=== PATIENT | male | born 1940 | race Caucasian/White ===

== ENCOUNTER 2017-07-29 18:33 | Inpatient (IN) | payer MEDICARE ==
[~2017-07-29 18:33] MED LIST: ISOVUE-370 76%-LOCM 1 ML ONE
[2017-07-29] MEDS ORDERED: Nitroglycerin 0.4 MG TAB (25 Tab Bottle) ONE (19:16)
[2017-07-29] MEDS ORDERED: Mag-Al 1200 mg/1200 mg/30 ML UDCUP ONE (19:16)
[2017-07-29] MEDS ORDERED: Metoprolol Tartrate 5 MG/5 ML VIAL ONE (19:16)
[2017-07-29] MEDS ORDERED: Lidocaine Viscous Sol 2% 15 ml UD Cup ONE (19:16)
[2017-07-29 19:31] LABS: #Eosinphils 0.1 thou/uL (0.0-0.7); #Lymphocytes 1.3 thou/uL (1.20-3.40); #Monocytes 0.7 thou/uL (0.11-0.59); #Neutrophils 10.2 thou/uL (1.40-6.50); %Basophils 0.4 % (0.0-1.0); %Eosinophils 0.5 % (0.0-10.0); %Lymphocytes 10.8 % (21.0-51.0); %Monocytes 5.4 % (0.0-10.0); Hematocrit 45.5 % (42.0-52.0); Red Blood Cell (RBC) Count 5.12 mill/uL (4.70-6.10); White Blood Cell (WBC) Count 12.4 thou/uL (4.8-10.8)
[2017-07-29 19:56] LABS: ALT (SGPT) 12 U/L (8-55); AST (SGOT) 13 U/L (5-34); Alkaline Phosphatase 59 U/L (40-150); Anion Gap 13 mmol/L (10-20); BUN (Urea Nitrogen) 18 mg/dL (8.4-25.7); Bilirubin, Total 0.7 mg/dL (0.2-1.2); CK (CPK) 68 U/L (30-200); Calc. Creatinine Clearance 0 mL/min (70-130); Calcium 9.4 mg/dL (7.8-10.44); Carbon Dioxide 26 mmol/L (23-31); Chloride 99 mmol/L (98-107); Estimated GFR-MDRD 71; Globulin 3.2 g/dL (2.4-3.5); Lipase 9 U/L (8-78); Protein, Total 7.3 g/dL (5.8-8.1)
[2017-07-29 20:00] LABS: Troponin I Less than 0.010 ng/mL (< 0.028)
--- NOTE | 2017-07-29 20:15 | RAD ---
PORTABLE CHEST: 07/29/17 HISTORY: Chest pain. COMPARISON: 04/30/17 study. Heart size is borderline. Postop sternotomy change and internal defibrillator device are noted. Management Services Technician elma lung changes are seen. No acute process. IMPRESSION: Chronic lung change. No acute findings. POS: [facility]
[2017-07-29] MEDS ORDERED: Morphine 2 MG/ML SYRINGE ONE (20:17)
[2017-07-30] MEDS ORDERED: Ondansetron HCl/PF 4 MG/2 ML Vial IVP PRN (04:06)
[2017-07-30] MEDS ORDERED: Morphine 2 MG/ML SYRINGE SLOW IVP PRN (04:56)
[2017-07-30] MEDS: Morphine 2 MG/ML SYRINGE SLOW IVP PRN ×5 (05:09→21:09)
[2017-07-30] MEDS: Sodium Chloride 0.9% 1,000 ML IV SCH ×2 (05:10→12:54)
[2017-07-30] MEDS ORDERED: Meropenem 1 GM, Admixture Fee 1 EACH in Sodium Chloride 0.9% 100 ML IVPB SCH (06:00)
[2017-07-30 07:42] VITALS: BMI 23.7
--- NOTE | 2017-07-30 08:24 | CT ---
PRELIMINARY REPORT/[facility]/EMERGENCY AFTER HOURS PROCEDURE: EXAM: CT Abdomen and Pelvis With Intravenous Contrast CLINICAL HISTORY: 76 years old, male; Pain; Abdominal pain; Epigastric; Patient HX: 76 yo male with epigastric pain th at has been ongoing all day today. Pain radiates to his back and into his chest. Denies nvd. Had saad nt placed in march. Pmhx of 7 cardiac bypass. Recently at his cardiology a couple of days ago and was told he was fine. Also notes epigstric abd pain. Iv contrast only TECHNIQUE: Axial computed tomography images of the abdomen and pelvis with intravenous contrast. Coronal reformatted images were created and reviewed. CONTRAST: 100 mL of ISO 14 administered intravenously. COMPARISON: No relevant prior studies available. FINDINGS: The lung bases are clear. The gallbladder is distended, transverse diameter up to 4.5 cm. Moderate gallbladder wall thickening/edema. Moderate pericholecystic inflammatory changes, small amount of pericholecystic fluid. No definite/visible gallstones by CT. Ultrasound could be more sensitive for detecting gallstones, i f clinically needed. Overall findings are very suspicious for acute cholecystitis. Mild extra hepatic biliary tree prominence, with common duct measuring about 6-7 mm. No definite int rahepatic dilation. No visible common duct stone by CT. Significance uncertain. Correlation with laboratory/bilirubin levels may be helpful to determine if there is any significant biliary obstruction. Complete occlusion of the abdominal aorta, beginning at about the level of the renal arteries. No de finite evidence for significant focal abdominal aortic aneurysm. The lower abdominal aorta is very small in caliber. Occlusion of the proximal common iliac arteries bilaterally. Reconstitution of the distal common iliac arteries bilaterally, via collateral flow. Celiac artery, superior mesenteric artery, and left renal arteries appear patent. The right renal artery appears occluded. I presume that the above findings are chronic, please correlate clinically. Small atrophic right kidney, presumably due to chronic vascular insufficiency. Numerous bilateral renal cysts, more prominent and larger on the right. Largest cyst measures 8 cm i nvolving the right upper pole. No hydronephrosis of either kidney. No visible ureteral calculus. There is a small low attenuation area in the right lobe of the liver. The appearance is nonspecific, but statistically this most likely represents a small cyst or hemangi bala. Unremarkable appearance of the spleen, kidneys, adrenal glands, and pancreas. No free air, or bowel distention. Small amount of peritoneal fluid/ascites, mainly in the right pericolic gutter. No retroperitoneal adenopathy. CT pelvis: The appendix is visualized and appears normal. There are no CT findings to strongly suggest diverticulitis. No abnormal mass or fluid collection in the pelvis. Small bilateral inguinal hernias, right larger than left, containing only fat. IMPRESSION: Findings compatible with acute cholecystitis, see above details. Mild extra hepatic biliary tree prominence, see above discussion. No free air or bowel distention. Occlusion of the lower abdominal aorta, common iliac arteries, and right renal artery, presumably ch ronic findings. Clinical correlation needed. See above details/discussion. Small atrophic right kidney, see above discussion. Bilateral renal cysts. No hydronephrosis of either kidney. No visible ureteral calculus. Normal appendix. No diverticulitis. Small amount of peritoneal fluid/ascites. Other findings discussed above. Thank you for allowing us to participate in the care of your patient. Dictated and Authenticated by: Amanuel Panchal MD 07/30/2017 12:50 AM Central Time ([place] \T\ Lisa) FINAL REPORT CT ABDOMEN AND PELVIS WITH CONTRAST: HISTORY: Pain. Epigastric pain going on all day. Pain radiating to the back and chest. COMPARISON: 03/20/17. FINDINGS: Atelectatic changes in the lung bases. Heart size is prominent. Abnormal wall thickening and enhan cement around the gallbladder with small bowel fluid in the right pericolonic gutter. There are num erous bilateral renal cysts with the majority of the right renal parenchyma replaced by cyst formati on. There is a chronic occlusion of the aorta at the level of the right renal artery with the left renal artery being spared. The inferior mesenteric artery collaterals and superior mesenteric arter y feed the iliac vessels. Moderate degenerative disease at L5-S1. IMPRESSION: 1. CT evidence of acute cholecystitis. Other chronic findings as above. 2. Curvilinear radiopacity within the cecum is felt to be ingested as new from a comparison examina tion. Recommend correlation for ingestion of metallic foreign body. CODE: QA POS: [facility]
[2017-07-30] MEDS ORDERED: Albuterol Sulfate 1.25 MG/3 ML NEB NEB PRN (09:09)
[2017-07-30] MEDS ORDERED: Nitroglycerin 0.4 MG TAB (25 Tab Bottle) SL PRN (09:09)
[2017-07-30] MEDS: Carvedilol 6.25 MG TAB PO SCH ×2 (09:59→21:37)
[2017-07-30 10:05] LABS: PTT 34.7 SEC (22.9-36.1); Prothrombin Time 15.5 SEC (12.0-14.7)
[2017-07-30 10:20] LABS: ALT (SGPT) 10 U/L (8-55); AST (SGOT) 10 U/L (5-34); Alkaline Phosphatase 50 U/L (40-150); Anion Gap 10 mmol/L (10-20); BUN (Urea Nitrogen) 15 mg/dL (8.4-25.7); Bilirubin, Total 1.1 mg/dL (0.2-1.2); Calc. Creatinine Clearance 70 mL/min (70-130); Calcium 8.9 mg/dL (7.8-10.44); Carbon Dioxide 28 mmol/L (23-31); Chloride 99 mmol/L (98-107); Estimated GFR-MDRD 72; Globulin 2.8 g/dL (2.4-3.5); Protein, Total 6.6 g/dL (5.8-8.1)
[2017-07-30 10:24] LABS: Troponin I 0.014 ng/mL (< 0.028)
[2017-07-30 10:39] LABS: Band 8 % (5-11); Hematocrit 46.5 % (42.0-52.0); Mean Platelet Volume 7.7 fL (7.4-10.4); Neutrophil 79 % (42-75); Reactive Lymphocytes 2 % (0-10); Red Blood Cell (RBC) Count 5.25 mill/uL (4.70-6.10)
--- NOTE | 2017-07-30 11:04 | ULT ---
ULTRASOUND GALLBLADDER RIGHT UPPER QUADRANT: HISTORY: Abnormal CT examination. FINDINGS: Visualized portions of the pancreas are unremarkable. The gallbladder is distended with positive Mu rphy's sign, pericholecystic fluid, and wall edema. Multiple cysts in the right kidney which is atr ophic. Hepatic echotexture is normal. IMPRESSION: 1. Findings indicative of acute cholecystitis. 2. Atrophic polycystic right kidney. POS: [facility]
[2017-07-30] MEDS: D5 1/2 NS w/20 mEq KCL 1,000 ML IV SCH ×3 (12:01→22:48)
[2017-07-30] MEDS: SODIUM CHLORIDE 0.9% IVPB SCH ×2 (14:50→22:46)
[2017-07-30] MEDS: MEROPENEM IVPB SCH ×2 (14:50→22:46)
[2017-07-30] MEDS: ADMIXTURE FEE CHEMO IVPB SCH ×2 (14:50→22:46)
--- NOTE | 2017-07-30 15:16 | HP ---
CHIEF COMPLAINT: Abdominal pain. HISTORY OF PRESENT ILLNESS: Mr. Gillette is a 76-year-old man with multiple medical issues who presented to the emergency room with epigastric pain that began yesterday morning and lasted all day long. He states that it was radiating to his back and his chest. He denied nausea, vomiting or diarrhea. He denied fevers or chills. He does have a history of an SC about [address] Baires took him to the seed laboratory technician, but was unable to stent anything, so he has just been managed medically since that time. In the emergency room, he underwent a CT scan of the abdomen and pelvis which revealed stranding around his gallbladder concerning for cholecystitis as well as some mild extrahepatic biliary dilatation. A followup ultrasound did not reveal any definite stones in the gallbladder and the visualized common bile duct on ultrasound was normal in caliber. He denies any previous history of gallbladder problems and denies a history of postprandial pain. He does have severe vascular disease with chronic aortic occlusion as well as renal artery occlusion and atrophic kidney. He does have chronic pain in his legs, but no skin breakdown or rest pain. It sounds like it is more claudication type pain. He is feeling better today than he was yesterday after receiving pain medications and antibiotics in the emergency room, but he is still hurting and states that the pain is worse in the right upper quadrant. PAST MEDICAL HISTORY: 1. Coronary artery disease status post SC x3 with 2 bypass surgeries and an attempted stenting 3 months ago which was unable to be performed. 2. Hyperlipidemia. 3. Hypertension. 4. COPD. 5. Chronic peripheral vascular disease with aortic and renal artery occlusion. 6. Prostatic hypertrophy. PAST SURGICAL HISTORY: Coronary artery bypass x2, inguinal hernia repair and AICD placement. The AICD has never fired . SOCIAL HISTORY: He is a former smoker who quit about 20 years ago. He does not have any alcohol or drug use. ALLERGIES: He has allergies or adverse drug reactions to ROFECOXIB/VIOXX. OUTPATIENT MEDICATIONS: Include Brilinta 90 mg p.o. b.i.d., aspirin 81 mg p.o. daily, finasteride 5 mg p.o. daily, CoQ10 200 mg p.o. b.i.d., lisinopril 20 mg p.o. b.i.d., folate 0.4 mg p.o. daily, tamsulosin 0.4 mg p.o. b.i.d., carvedilol 12.5 mg p.o. b.i.d., Crestor 10 mg p.o. daily, iron 325 mg p.o. daily , metoprolol extended release 25 mg p.o. daily, pantoprazole 40 mg p.o. daily, isosorbide mononitrate 60 mg p.o. daily and p.r.n. sublingual nitroglycerin and Ranexa 500 mg p.o. b.i.d., albuterol nebs p.r.n., Symbicort inhaler b.i.d., and tramadol p.r.n. for the pain in his legs. INPATIENT MEDICATIONS: He received meropenem in the emergency room as well as pain medication. FAMILY HISTORY: Noncontributory. REVIEW OF SYSTEMS: Ten system review of systems is negative except per HPI. PHYSICAL EXAMINATION: VITAL SIGNS: Patient has been afebrile since his admission, his heart rate is up slightly in the low 100s, respiratory rate 16-20 and 93%-95% saturated on room air. Blood pressure normal in the 130s to 140s systolic over 70s-80s diastolic. GENERAL: Reveals an elderly gentleman in no acute distress. He is not flushed or toxic in appearance. He is not jaundiced or icteric. HEENT: Unremarkable. NECK: Supple, without lymphadenopathy or thyroid nodules. HEART: Regular in its rate and rhythm. I do not appreciate any murmurs, rubs, or gallops. LUNGS: Clear to auscultation. ABDOMEN: Soft and nondistended. He is very tender to palpation in the right upper quadrant, less so in the right lower quadrant and left upper quadrant. He does not exhibit any rigidity, rebound or guarding and does not have any palpable masses or hernias. EXTREMITIES: Cool, but with fairly normal capillary refill. No palpable pulses , no edema, no skin breakdown or ulcerations. He does not have pallor on elevation. He has normal strength and sensation. PSYCHIATRIC: Alert, oriented, and appropriate. LABORATORY DATA: White count was mildly elevated at 12.4 and has actually gone up this morning to 25. He does have a left shift. Coags are unremarkable. LFTs and electrolytes are unremarkable. Troponins in the ER were negative and repeat troponins remain negative. His BNP is elevated at 11:35. EKG in the ER did not show any acute ST changes, but did show a first degree AV block. CT images are reviewed and I agree with the written report. He has multiple chronic abnormalities including renal cysts, aortic occlusion with distal reconstitution through collaterals, right renal artery occlusion with resulting atrophy. The only acute appearing finding is the abnormal gallbladder which is distended with pericholecystic fluid and inflammation and gallbladder wall thickening. Gallbladder ultrasound does not have radiologist's report, but on my evaluation, the wall is thickened with some pericholecystic fluid. I do not appreciate any gallstones and the common bile duct is normal caliber. ASSESSMENT: Acute cholecystitis, likely acalculous. Patient has multiple comorbidities including severe coronary artery disease and peripheral vascular disease and I am concerned that he is high risk for general anesthesia. I have asked Cardiology to evaluate him, but will likely proceed with percutaneous drainage of the gallbladder and antibiotic therapy. The relative risks and benefits of laparoscopic cholecystectomy versus percutaneous drainage were discussed with the patient and his daughter. The percutaneous cholecystectomy does carry risks of bleeding, need for further procedures, and possible recurrence after the drain is removed; however, I believe that he has likely elevated cardiac risk for general anesthesia given his recent SC and non- revisable cardiac disease. I have spoken with Dr. Marmolejo about him and he is going to see him today. We will await his evaluation. GARY
[2017-07-30] MEDS: Ondansetron HCl/PF 4 MG/2 ML Vial IVP PRN ×2 (16:27→21:05)
[2017-07-30] MEDS ORDERED: Furosemide 40 MG/4 ML VIAL SLOW IVP SCH (18:45)
--- NOTE | 2017-07-30 18:55 | CON ---
DATE OF CONSULTATION: 07/30/2017 REASON FOR CONSULTATION: Preoperative evaluation. PRIMARY FORESTRY SCIENTIST: Albaro Agudelo M.D. HISTORY OF PRESENT ILLNESS: Mr. Cory Gillette is a very pleasant 76-year-old white gentleman who com es to the hospital for abdominal pain. He was diagnosed with acute cholecystitis with elevated whit e count and the plan is to do either a cholecystectomy or percutaneous tube for drainage. Cardiolog y is being consulted to ask for preoperative risk evaluation. Mr. Gillette denies any chest pain, t ightness, or pressure. Denies any shortness of breath. He is not having any heart failure symptoms . He does have a significant history of coronary artery disease with bypass grafting in the past. The last time he was evaluated was back in December in the setting of an inferior NM. He had a heart c atheterization and this was done by Dr. Baires. He was not able to engage the vein graft that had thr ombosed. He was treated medically and has been treated medically since. PAST MEDICAL HISTORY: 1. Coronary artery disease as above. 2. Hyperlipidemia. 3. Hypertension. 4. COPD. 5. History of ischemic cardiomyopathy with an EF of 35%. PAST SURGICAL HISTORY: 1. CABG in the past. 2. Hernia repair. 3. AICD placement. SOCIAL HISTORY: Quit smoking in 1997. No alcohol or drug use. OUTPATIENT MEDICATIONS: Include: 1. Aspirin. 2. Folic acid. 3. Finasteride. 4. Carvedilol 12.5 mg b.i.d. 5. Imdur 30 mg a day. 6. Iron supplements. 7. Toprol-XL 25 mg a day. 8. Lisinopril 20 mg b.i.d. 9. Protonix. 10. Tamsulosin. 11. Crestor 10 mg at bedtime. 12. Co-Q10. 13. Brilinta 90 mg b.i.d. 14. Ranexa 500 mg b.i.d. ALLERGIES: VIOXX. FAMILY HISTORY: Noncontributory. REVIEW OF SYSTEMS: Twelve-point review of systems was done and is all negative unless stated in the history of present illness. PHYSICAL EXAMINATION: VITAL SIGNS: T-max has been 99.3, pulse 105, respiration rate 18, satting 92% on 2 liters, blood pr essure 141/78. GENERAL: Awake, alert, oriented x3, in no distress. HEENT: Normocephalic, atraumatic. NECK: Supple. LUNGS: Clear. CARDIOVASCULAR: S1, S2, no S3 or S4. There is a grade 2/6 systolic murmur in right upper sternal b order. ABDOMEN: Soft with tenderness in the right upper quadrant, positive Marsh sign. EXTREMITIES: No edema. SKIN: Warm and dry. LABORATORY WORK: Reviewed. White count of 12 up to 25, hemoglobin of 15, hematocrit 46, platelet c ount 198. Coags, INR 1.2. Chemistry was unremarkable except for a sodium of 133 and a glucose of 1 36. Troponin has been negative x3. BNP was 1135 and his baseline BNP is actually in the 200s. CT of the abdomen and pelvis shows acute cholecystitis. ASSESSMENT AND PLAN: 1. Preoperative evaluation: Mr. Gillette would be high risk for this intermediate risk procedure. High risk is based on his unrevascularizeable coronary artery disease and his reduced left ventricu lar function. At this point in time, he is certainly not in prohibitive risk and should be able to undergo said procedure. Either percutaneous drain versus cholecystectomy. It should be okay to do either open versus laparoscopic. Would hold the Brilinta for now until it is safe from the surgical perspective to restart. 2. Coronary artery disease, stable. No evidence of acute coronary syndrome. 3. Ischemic cardiomyopathy: Ejection fraction of 35% on last evaluation. Automated implantable ca rdioverter defibrillator in place. Thank you for letting us to participate in the care of your patient. We will continue to follow.
[2017-07-30] MEDS: Mometasone/Formoterol 120 PUFF INHALER INH SCH (19:05)
[2017-07-30] MEDS: Lisinopril 20 MG TAB PO SCH (21:36)
[2017-07-30] MEDS: Finasteride 5 MG TAB PO SCH (21:37)
[2017-07-30] MEDS: Tamsulosin HCl 0.4 MG CAP PO SCH (21:37)
[2017-07-30] MEDS: traMADol HCl 50 MG TAB PO SCH (21:38)
[2017-07-31] MEDS: Morphine 2 MG/ML SYRINGE SLOW IVP PRN ×3 (01:57→10:27)
[2017-07-31] MEDS: SODIUM CHLORIDE 0.9% IVPB SCH ×3 (05:01→22:01)
[2017-07-31] MEDS: MEROPENEM IVPB SCH ×3 (05:01→22:01)
[2017-07-31] MEDS: ADMIXTURE FEE CHEMO IVPB SCH ×3 (05:01→22:01)
[2017-07-31] MEDS: Ondansetron HCl/PF 4 MG/2 ML Vial IVP PRN (05:06)
[2017-07-31] MEDS: Mometasone/Formoterol 120 PUFF INHALER INH SCH ×2 (07:02→18:48)
[2017-07-31] MEDS: traMADol HCl 50 MG TAB PO SCH ×2 (08:46→19:53)
[2017-07-31] MEDS: Lisinopril 20 MG TAB PO SCH (08:48)
[2017-07-31] MEDS: Carvedilol 6.25 MG TAB PO SCH ×2 (08:51→21:58)
[2017-07-31] MEDS: Tamsulosin HCl 0.4 MG CAP PO SCH ×2 (08:51→19:54)
[2017-07-31 09:06] LABS: Hematocrit 46.1 % (42.0-52.0); Red Blood Cell (RBC) Count 5.16 mill/uL (4.70-6.10)
[2017-07-31 09:14] LABS: ALT (SGPT) 8 U/L (8-55); AST (SGOT) 12 U/L (5-34); Alkaline Phosphatase 47 U/L (40-150); Anion Gap 9 mmol/L (10-20); BUN (Urea Nitrogen) 20 mg/dL (8.4-25.7); Calc. Creatinine Clearance 72 mL/min (70-130); Calcium 8.6 mg/dL (7.8-10.44); Carbon Dioxide 26 mmol/L (23-31); Chloride 99 mmol/L (98-107); Estimated GFR-MDRD 75; Lipase 4 U/L (8-78); Protein, Total 6.2 g/dL (5.8-8.1)
[2017-07-31 09:56] LABS: Band 8 % (5-11); Neutrophil 83 % (42-75); Reactive Lymphocytes 1 % (0-10)
[2017-07-31] MEDS: D5 1/2 NS w/20 mEq KCL 1,000 ML IV SCH ×2 (10:26→10:32)
[2017-07-31] MEDS ORDERED: Sodium Chloride 0.9% 500 ML IVPB SCH (12:15)
--- NOTE | 2017-07-31 17:12 | PDOC.CTH ---
Cardiology Progress Note - Subjective He continues to have abdominal pain. No chest pain. - Objective Vital Signs Temp Pulse Resp BP BP Pulse Ox 07/31/17 16:00 97.9 F 81 16 88/54 L 94 L 07/31/17 15:22 90/51 L 07/31/17 14:42 94/50 L 07/31/17 13:40 93/54 L 07/31/17 13:30 87/47 L 07/31/17 12:40 97/59 L 07/31/17 11:52 97.5 F L 84 16 92/51 L 92 L 07/31/17 11:35 85 90/47 L 07/31/17 08:51 114/70 07/31/17 08:48 114/70 07/31/17 08:40 98.1 F 88 16 93 L 07/31/17 08:00 98.1 F 88 16 103/67 93 L 07/30/17 07/31/17 08/01/17 06:59 06:59 06:59 Intake Total 300 2950 Output Total 1460 Balance 300 1490 - Physical Examination General/Neuro: alert & oriented x3, NAD Neck: no JVD present Lungs: CTA, unlabored respirations Heart: RRR Abdomen: other: (tender to palpatoin RUQ) Extremities: + edema B (none) - Labs Result Diagrams: 07/31/17 08:40 07/31/17 08:40 Troponin/CKMB CK-MB (CK-2) 0.8 ng/mL (0-6.6) 07/30/17 09:51 Troponin I 0.014 ng/mL (< 0.028) 07/30/17 09:51 - Assessment/Plan 1. Acute cholecystitis 2. CAD, stable 3. Ischemic CM EF at 35%. 4. AICD in place PLAN: - No new recs from cardiac perspective.
[2017-07-31] MEDS: Finasteride 5 MG TAB PO SCH (19:54)
--- NOTE | 2017-07-31 23:32 | PRG ---
DATE OF SERVICE: 07/31/2017 SUBJECTIVE: Mr. Gillette states that he is feeling better today. His abdominal pain has diminished quite a bit. He has had some episodes of low blood pressure throughout the day. He has told us th at he was taking lisinopril twice a day, but other family members arrive today who informed us that he had been told by his strings teacher to stop taking his lisinopril except on a p.r.n. basis when his blood pressure was very high. His blood pressure did respond to fluids and he was only intermitten tly and mildly symptomatic with little lightheadedness. He has not had any fevers and his vital sig ns have otherwise been okay. His white count is still elevated, but is down somewhat compared to ye and he is less tender to palpation in the right upper quadrant than yesterday as well. ASSESSMENT: Acalculous cholecystitis responding to medical management. I have ordered repeat ultra sound for tomorrow as well as repeat labs to make sure that his gallbladder is not looking worse.
[2017-08-01] MEDS: D5 1/2 NS w/20 mEq KCL 1,000 ML IV SCH ×3 (02:20→21:30)
[2017-08-01] MEDS: Morphine 2 MG/ML SYRINGE SLOW IVP PRN ×3 (02:31→15:54)
[2017-08-01] MEDS: ADMIXTURE FEE CHEMO IVPB SCH ×3 (05:04→17:53)
[2017-08-01] MEDS: SODIUM CHLORIDE 0.9% IVPB SCH ×3 (05:04→17:53)
[2017-08-01] MEDS: MEROPENEM IVPB SCH ×3 (05:04→17:53)
[2017-08-01 06:21] LABS: Band 8 % (5-11); Hematocrit 40.4 % (42.0-52.0); Mean Platelet Volume 8.1 fL (7.4-10.4); Neutrophil 83 % (42-75); Red Blood Cell (RBC) Count 4.49 mill/uL (4.70-6.10); White Blood Cell (WBC) Count 16.4 thou/uL (4.8-10.8)
[2017-08-01 06:30] LABS: ALT (SGPT) 10 U/L (8-55); AST (SGOT) 14 U/L (5-34); Alkaline Phosphatase 48 U/L (40-150); Anion Gap 7 mmol/L (10-20); BUN (Urea Nitrogen) 26 mg/dL (8.4-25.7); Bilirubin, Total 0.9 mg/dL (0.2-1.2); Calc. Creatinine Clearance 80 mL/min (70-130); Calcium 8.2 mg/dL (7.8-10.44); Carbon Dioxide 25 mmol/L (23-31); Chloride 102 mmol/L (98-107); Estimated GFR-MDRD 84; Globulin 2.6 g/dL (2.4-3.5); Protein, Total 5.6 g/dL (5.8-8.1)
[2017-08-01] MEDS: Mometasone/Formoterol 120 PUFF INHALER INH SCH ×2 (07:51→23:08)
[2017-08-01] MEDS: Carvedilol 6.25 MG TAB PO SCH ×2 (08:34→20:35)
[2017-08-01] MEDS: Tamsulosin HCl 0.4 MG CAP PO SCH ×2 (08:35→21:29)
[2017-08-01] MEDS: traMADol HCl 50 MG TAB PO SCH ×2 (08:35→21:28)
--- NOTE | 2017-08-01 09:53 | ULT ---
RIGHT UPPER QUADRANT ULTRASOUND: Date: 08/01/17 HISTORY: Cholecystitis. FINDINGS: The liver demonstrates homogeneous echotexture without focal mass or intrahepatic ductal dilatation. There is sludge and mobile shadowing gallstones in the gallbladder with gallbladder wall thickening measuring 4.8 mm. Multiple cysts in the right kidney are seen, the largest measuring about 6.0 mm. These have been noted on the CT scan of 07/30/17. The common duct measures 8.0 mm in diameter. The p ancreas is not satisfactorily visualized. No free fluid is seen in Morison's pouch. Incidental note is made of a right-sided pleural effusion. IMPRESSION: 1. Cholelithiasis with gallbladder wall thickening and gallbladder sludge. If there is high clinica l suspicion for acute cholecystitis, further evaluation with a HIDA scan would be helpful. 2. Right renal cyst. 3. Right pleural effusion. POS: [facility]
--- NOTE | 2017-08-01 18:00 | NM ---
HEPATOBILIARY SCAN: Date: 08/01/17 HISTORY: Cholelithiasis, cholecystitis. RADIOPHARMACEUTICAL: 5 mCi technetium-99m mebrofenin injected intravenously. Pretreatment with CCK: 1.6 micrograms administered 30 minutes prior to the radiopharmaceutical. FINDINGS: There is good tracer extraction by the liver with prompt excretion into the biliary tract and small bowel loops. There is no filling of the gallbladder at 1 hour. 2 mg IV morphine administered and add itional imaging performed for 30 minutes. No filling of the gallbladder is noted on the post morphin e augmentation images. IMPRESSION: Acute cholecystitis. Discussed over the telephone with Dr. Patric Valencia at 1647 hours. CODE CR. POS: [facility]
[2017-08-01] MEDS: Finasteride 5 MG TAB PO SCH (21:29)
--- NOTE | 2017-08-01 21:49 | PRG ---
DATE OF SERVICE: 08/01/2017 SUBJECTIVE: Mr. Gillette is feeling better today. He is not having as much pain as he has had in the past. He denies any fevers. He is not nauseated, but has not had anything to eat today since he was n.p.o. for a repeat gallbladder ultrasound. The ultrasound showed sludge in the gallbladder and wall thickening, although the pericholecystic fluid, which was present earlier was not noted. His white count is still elevated, but is down slightly to 16. LFTs remain normal. On abdominal exam, he is threading machine tender in the right upper quadrant, but not as much as he was before. After discussing his case with Dr. Agudelo of Cardiology, he confirmed that the patient is high risk for any surgical procedure due to severe vascular disease and cardiomyopathy. Since the patient seems to be improving with medical management, we are going to continue this, with a gallbladder drain if necessary. I explained that the radiologist had been hesitant to do a percutaneous cholecystostomy tube due to the antiplatelet treatment. He states that the patient will need to go back on aspirin, but we can hold the Brilinta. I then discussed the patient's case with Radiology and they recommended a HIDA scan to see if the patient definitely has cholecystitis with the thought that if the gallbladder fills normally, we could restart his antiplatelets without too much concern. But if the gallbladder did not fill normally, we might be able to do the percutaneous cholecystostomy before resuming his antiplatelet treatment. A HIDA scan was ordered and this showed no filling of the gallbladder consistent with acute cholecystitis. Radiology is planning tentatively to perform the percutaneous cholecystostomy placement tomorrow. After this is done, we will resume his aspirin. If they are unable to do it tomorrow, we will resume his aspirin anyway. The treatment plan was discussed with the patient and he is in agreement with this plan. GARY
[2017-08-02] MEDS: SODIUM CHLORIDE 0.9% IVPB SCH ×3 (00:30→21:54)
[2017-08-02] MEDS: ADMIXTURE FEE CHEMO IVPB SCH ×3 (00:30→21:54)
[2017-08-02] MEDS: MEROPENEM IVPB SCH ×3 (00:30→21:54)
[2017-08-02] MEDS: Morphine 2 MG/ML SYRINGE SLOW IVP PRN ×5 (01:07→19:38)
[2017-08-02 06:59] LABS: ALT (SGPT) 20 U/L (8-55); AST (SGOT) 24 U/L (5-34); Alkaline Phosphatase 52 U/L (40-150); Anion Gap 9 mmol/L (10-20); BUN (Urea Nitrogen) 25 mg/dL (8.4-25.7); Bilirubin, Total 0.8 mg/dL (0.2-1.2); Calc. Creatinine Clearance 91 mL/min (70-130); Calcium 8.1 mg/dL (7.8-10.44); Carbon Dioxide 24 mmol/L (23-31); Chloride 102 mmol/L (98-107); Estimated GFR-MDRD Greater than 90; Globulin 2.8 g/dL (2.4-3.5); Mean Platelet Volume 8.4 fL (7.4-10.4); Protein, Total 5.7 g/dL (5.8-8.1); Red Blood Cell (RBC) Count 4.16 mill/uL (4.70-6.10); White Blood Cell (WBC) Count 15.8 thou/uL (4.8-10.8)
[2017-08-02] MEDS: Mometasone/Formoterol 120 PUFF INHALER INH SCH ×2 (07:09→20:27)
[2017-08-02 08:11] LABS: Band 13 % (5-11); Neutrophil 74 % (42-75); Reactive Lymphocytes 1 % (0-10)
[2017-08-02] MEDS: Carvedilol 6.25 MG TAB PO SCH ×2 (08:53→21:08)
[2017-08-02] MEDS: Tamsulosin HCl 0.4 MG CAP PO SCH ×2 (09:24→21:50)
[2017-08-02] MEDS: traMADol HCl 50 MG TAB PO SCH ×2 (09:25→21:49)
[2017-08-02] MEDS ORDERED: Midazolam HCl 2 mg/2 ml Vial ONE (09:59)
[2017-08-02] MEDS ORDERED: Fentanyl 100 MCG/2 ML VIAL ONE (09:59)
--- NOTE | 2017-08-02 13:19 | SPC ---
SONOGRAPHICALLY GUIDED PERCUTANEOUS CHOLECYSTOSTOMY: Conscious sedation: 2 mg Versed, IV. 100 microgram Fentanyl, IV. Fluoro time: 2.8 minutes. FINDINGS: After explaining the procedure and answering all questions, the right upper quadrant was prepped and draped in the usual sterile fashion. Sterile technique, conscious sedation, buffered local anesthes ia, sonographic guidance, and a right upper quadrant anterior approach were used to carefully advanc e the tip of a 22 gauge spinal needle to the gallbladder lumen with good purchase through the hepati c parenchyma. A small amount of contrast was used to confirm needle placement. Guidewire was placed. Accu-stick system was then used to place a sheath, and approximately 60 cc of cloudy black bile was aspirated. A portion was sent to laboratory for analysis. Tract was dilated to 8 [place] Of [place] and an 8 Fr ench lock-n-loop catheter was placed at the level of the gallbladder neck. The catheter was secured externally with 20 ethilon suture and left draining to gravity. Patient tolerated the procedure well and was returned in improved condition. IMPRESSION: Technically successful sonographic guided percutaneous cholecystostomy. POS: [facility]
[2017-08-02 13:30] LABS: BF Reference Range Comment Note:
--- NOTE | 2017-08-02 14:04 | CT ---
CT ABDOMEN AND PELVIS NONCONTRAST: History: Abdominal pain. Acute cholecystitis. Comparison: 07-30-17 FINDINGS: Small amount of bilateral pleural fluid and bibasilar atelectasis are now apparent. Renal cysts are again demonstrated. Urinary bladder contains a small amount of contrast. Pigtail catheter now decompresses the gallbladder lumen. Stones and a small amount of contrast mater ial remain. Inflammation surrounding the gallbladder has increases slightly since the prior study. IMPRESSION: 1. Percutaneous cholecystectomy catheter is in good CT position, decompressing the gallbladder. No e vidence of hematoma. 2. Small amount of bilateral pleural fluid and bibasilar atelectasis. Findings were called to Dr. Valencia at 1309 hours. Code CR. POS: [facility]
[2017-08-02] MEDS: D5 1/2 NS w/20 mEq KCL 1,000 ML IV SCH (14:19)
[2017-08-02 14:56] LABS: BF Color Brown; RBC Count-Automated 34000 /cumm
[2017-08-02 15:32] LABS: Number Cells Counted-Fluids 100
--- NOTE | 2017-08-02 17:18 | PRG ---
DATE OF SERVICE: 08/02/2017 SUBJECTIVE: Mr. Gillette went for his percutaneous cholecystostomy tube placement earlier today. A s the gallbladder was being aspirated, he started complaining of severe pain in the abdomen and some pain in his shoulder. He was given pain medication and anxiolytic down in x-ray, but when he came up to the floor, he was still having severe pain. I gave him several doses of morphine without effe ct and decided to scan him without contrast due to concern for complications from the procedure. Ho wever, the tube appears to be in perfect position. There is no evidence of bleeding or large biloma and the patient's pain resolved almost as quickly as it came on. His abdomen is soft and nondisten ded. He is refining still operator to palpation in the right upper quadrant, but this is about the same as yes terday. The cholecystostomy tube is draining clear-appearing bile. Gram stain and cultures were se nt from Radiology; results are not back. ASSESSMENT: Cholecystitis, status post percutaneous drainage, symptomatically better. I am unsure what the cause of his acute pain was. He may have had a small amount of bile drainage and irritatio n or it may be due to just decompression of the gallbladder and moving the inflamed tissues in that area. In any case, his symptoms have resolved, so we will just follow him for this. I have reorder ed his aspirin to start and also ordered repeat labs for tomorrow. We will follow his culture resul ts and plan to discharge him with a cholecystostomy tube in place.
[2017-08-02] MEDS: Finasteride 5 MG TAB PO SCH (21:50)
[2017-08-03] MEDS: D5 1/2 NS w/20 mEq KCL 1,000 ML IV SCH ×3 (04:39→20:25)
[2017-08-03] MEDS: SODIUM CHLORIDE 0.9% IVPB SCH ×3 (06:10→21:14)
[2017-08-03] MEDS: MEROPENEM IVPB SCH ×3 (06:10→21:14)
[2017-08-03] MEDS: ADMIXTURE FEE CHEMO IVPB SCH ×3 (06:10→21:14)
[2017-08-03] MEDS: Mometasone/Formoterol 120 PUFF INHALER INH SCH ×2 (06:35→19:47)
[2017-08-03 06:38] LABS: #Eosinphils 0.2 thou/uL (0.0-0.7); #Lymphocytes 1.1 thou/uL (1.20-3.40); #Monocytes 1.2 thou/uL (0.11-0.59); #Neutrophils 9.3 thou/uL (1.40-6.50); %Basophils 0.1 % (0.0-1.0); %Eosinophils 1.3 % (0.0-10.0); %Lymphocytes 9.5 % (21.0-51.0); %Monocytes 10.4 % (0.0-10.0); Hematocrit 36.9 % (42.0-52.0); Mean Platelet Volume 8.2 fL (7.4-10.4); Red Blood Cell (RBC) Count 4.23 mill/uL (4.70-6.10); White Blood Cell (WBC) Count 11.8 thou/uL (4.8-10.8)
[2017-08-03 06:59] LABS: ALT (SGPT) 30 U/L (8-55); AST (SGOT) 35 U/L (5-34); Alkaline Phosphatase 65 U/L (40-150); Anion Gap 9 mmol/L (10-20); BUN (Urea Nitrogen) 20 mg/dL (8.4-25.7); Bilirubin, Total 0.7 mg/dL (0.2-1.2); Calc. Creatinine Clearance 100 mL/min (70-130); Calcium 8.4 mg/dL (7.8-10.44); Carbon Dioxide 25 mmol/L (23-31); Chloride 104 mmol/L (98-107); Estimated GFR-MDRD Greater than 90; Globulin 2.6 g/dL (2.4-3.5); Protein, Total 5.4 g/dL (5.8-8.1)
[2017-08-03] MEDS: Carvedilol 6.25 MG TAB PO SCH ×2 (09:08→20:24)
[2017-08-03] MEDS: Aspirin 81 mg Enteric Coated Tablet PO SCH (09:09)
[2017-08-03] MEDS: traMADol HCl 50 MG TAB PO SCH ×2 (09:10→21:59)
[2017-08-03] MEDS: Tamsulosin HCl 0.4 MG CAP PO SCH ×2 (09:10→20:23)
--- NOTE | 2017-08-03 12:26 | PRG ---
DATE OF SERVICE: 08/03/2017 SUBJECTIVE: Mr. Gillette is feeling much better today. His abdominal pain is less than it was yest erday and he is tolerating his clear liquid diet. Morning labs are still pending. His abdomen is s oft, mildly tender to palpation in the right upper quadrant, but less than yesterday. There is bili ous drainage from his cholecystostomy tube. ASSESSMENT AND PLAN: Acute cholecystitis, status post percutaneous drainage. He is doing well and tolerating his liquid diet. We are going to advance his diet today to a low fat/low cholesterol t. The nurses are going to teach him how to manage his cholecystostomy drain and I anticipate he wi ll be discharged home with this likely tomorrow, although possibly later today if he is doing well.
[2017-08-03] MEDS: Morphine 2 MG/ML SYRINGE SLOW IVP PRN (20:21)
[2017-08-03] MEDS: Finasteride 5 MG TAB PO SCH (20:24)
[2017-08-04] MEDS: Morphine 2 MG/ML SYRINGE SLOW IVP PRN (04:28)
[2017-08-04] MEDS: SODIUM CHLORIDE 0.9% IVPB SCH (06:11)
[2017-08-04] MEDS: ADMIXTURE FEE CHEMO IVPB SCH (06:11)
[2017-08-04] MEDS: MEROPENEM IVPB SCH (06:11)
[2017-08-04] MEDS: Mometasone/Formoterol 120 PUFF INHALER INH SCH (07:11)
[2017-08-04] MEDS: Aspirin 81 mg Enteric Coated Tablet PO SCH (08:33)
[2017-08-04] MEDS: Tamsulosin HCl 0.4 MG CAP PO SCH (08:35)
[2017-08-04] MEDS: traMADol HCl 50 MG TAB PO SCH (08:35)
[2017-08-04] MEDS: Carvedilol 6.25 MG TAB PO SCH (08:36)
[2017-08-04] MEDS ORDERED: Lisinopril 10 MG TAB PO SCH (09:00)
[2017-08-04] MEDS ORDERED: HYDROcodone/Acetaminophen 7.5/325 mg Tablet PO PRN ×2 (10:52)
[2017-08-04 17:11] VITALS: BP 147/88; TEMP 98.3
--- NOTE | 2017-08-05 14:05 | DIS ---
DATE OF ADMISSION: 07/30/2017 DATE OF DISCHARGE: 08/04/2017 FINAL DIAGNOSES: 1. Acute cholecystitis. 2. Severe coronary artery disease, nonreconstructable. 3. Severe peripheral vascular disease with chronic aortic occlusion. 4. Chronic renal insufficiency with renal artery occlusion. 5. Heart failure. HOSPITAL COURSE: Mr. Gillette is an elderly gentleman with multiple medical problems who presented to the emergency room with acute onset of severe epigastric pain and was found to have findings cons istent with acute cholecystitis on ultrasound, but normal LFTs. He was admitted for IV pain medicat ion, antibiotics and cardiac evaluation. The patient was felt to be very high risk for surgical int ervention for his cholecystitis. Initially, the plan was to place percutaneous cholecystostomy tube drain; however, Radiology had concerns that this might not be safe due to his antiplatelet therapy. So he was maintained on antibiotics and pain medication for 5 days until the percutaneous cholecys tostomy tube could be drained. His white count came down and his pain improved. His family was ins tructed on drain care and management and he was discharged home with the percutaneous cholecystostom y tube in place. Bile cultures grew E. coli which was pansensitive. OUTPATIENT MEDICATIONS: Include new medication of [place] 7.5 for p.r.n. pain and Levaquin 500 mg p.o . daily. He is to continue on his outpatient medications of albuterol nebulizers, p.r.n. nitroglyce rin, Dulera inhaler, tramadol, aspirin, finasteride, carvedilol, tamsulosin, CoQ12, Protonix, iron, folate, Crestor, Imdur, metoprolol, and p.r.n. lisinopril. He is going to hold his Brilinta for now . He is to [facility] 2 weeks' time with a drain log for possible fer ange of cholecystostomy tube. He is to continue on a low fat diet.
== END 2017-08-04 17:47 | disposition home or self-care (01) | DRG 445 ==
LOC: ERS 18:33 → SURG B 07-30 01:00
PROVIDERS: ADMIT Surgery; ATTEND Surgery
PROC: 0F9430Z Drainage of Gallbladder with Drainage Device, Percutaneous Approach (ICD-10-PCS; principal; 2017-08-02)
DX: K81.0 Acute cholecystitis (principal); N28.0 Ischemia and infarction of kidney; J44.9 Chronic obstructive pulmonary disease, unspecified; I10 Essential (primary) hypertension; I25.2 Old myocardial infarction; I25.10 Atherosclerotic heart disease of native coronary artery without angina pectoris; E78.5 Hyperlipidemia, unspecified; I73.89 Other specified peripheral vascular diseases; N40.0 Benign prostatic hyperplasia without lower urinary tract symptoms; Z95.1 Presence of aortocoronary bypass graft; Z95.810 Presence of automatic (implantable) cardiac defibrillator; Z87.891 Personal history of nicotine dependence; Z88.8 Allergy status to other drugs, medicaments and biological substances; Z79.82 Long term (current) use of aspirin; Z79.51 Long term (current) use of inhaled steroids; I44.0 Atrioventricular block, first degree; B96.20 Unspecified Escherichia coli [E. coli] as the cause of diseases classified elsewhere; I25.5 Ischemic cardiomyopathy
CPT/HCPCS: 36415; 47490; 47532; 47533; 47534; 71010; 74176; 74177; 76705; 78226; 80053; 82553; 83690; 83880; 84484; 85025; 85060; 85610; 85730; 87070; 87077; 87186; 87205; 89051; 93005; 96361; 96365; 96375; 99152; 99153; A4216; A9537; C1729; J1940; J2185; J2250; J2270; J2405; J3010; J7050

== ENCOUNTER 2018-08-03 11:45 | Outpatient (CLI) | payer MEDICARE ==
--- NOTE | 2018-08-03 15:25 | RAD ---
2 VIEWS CHEST: Date: 08/03/18 COMPARISON: 12/24/14. HISTORY: Dyspnea. FINDINGS: There is a stable transvenous AICD. Stable midline sternotomy wires and mediastinal clips are present . There is no pneumothorax or pleural fluid. There is no focal consolidation or alveolar edema. There is increased linear interstitial density with pulmonary hyperinflation suggesting COPD, stable as we ll. IMPRESSION: Stable 2 view examination of the chest as above. POS: JUAN CARLOS
== END 2018-08-03 11:46 | disposition home or self-care (01) ==
LOC: RAD 11:45
PROVIDERS: ATTEND Internal Medicine Pulmonary Disease
DX: R06.00 Dyspnea, unspecified (principal)
CPT/HCPCS: 71046

== ENCOUNTER 2018-12-18 17:55 | Observation (INO) | payer MEDICARE ==
[2018-12-18 18:27] LABS: #Lymphocytes 0.7 thou/uL (1.20-3.40); #Monocytes 0.8 thou/uL (0.11-0.59); %Basophils 0.4 % (0.0-1.0); %Eosinophils 0.1 % (0.0-10.0); %Lymphocytes 9.1 % (21.0-51.0); %Monocytes 10.2 % (0.0-10.0); %Neutrophils 80.2 % (42.0-75.0); Hemoglobin 14.8 g/dL (14.0-18.0); Mean Corpuscular HGB CONC 33.2 g/dL (32.0-36.0); Mean Corpuscular Hemoglobin 28.6 pg (27.0-31.0); Mean Corpuscular Volume 86.1 fL (78.0-98.0); Platelet Count 152 thou/uL (130-400); RBC Distribution Width 13.7 % (11.5-14.5); Red Blood Cell (RBC) Count 5.16 mill/uL (4.70-6.10); White Blood Cell (WBC) Count 7.5 thou/uL (4.8-10.8)
[2018-12-18] MEDS ORDERED: Ondansetron PF 4 MG/2 ML Vial ONE (18:28)
[2018-12-18 18:35] LABS: ALT (SGPT) 10 U/L (8-55); AST (SGOT) 12 U/L (5-34); Albumin 4.1 g/dL (3.4-4.8); Alkaline Phosphatase 55 U/L (40-150); Anion Gap 16 mmol/L (10-20); BUN (Urea Nitrogen) 24 mg/dL (8.4-25.7); Bilirubin, Total 0.9 mg/dL (0.2-1.2); Calc. Creatinine Clearance 0 mL/min (70-130); Calcium 9.5 mg/dL (7.8-10.44); Carbon Dioxide 24 mmol/L (23-31); Chloride 99 mmol/L (98-107); Estimated GFR-MDRD 74; Glucose 111 mg/dL (83-110); Lipase 11 U/L (8-78); Potassium 3.8 mmol/L (3.5-5.1); Protein, Total 7.1 g/dL (5.8-8.1); Sodium 135 mmol/L (136-145)
[2018-12-18 19:08] LABS: Bilirubin Small (Negative); Blood, Urine Negative (Negative); Glucose, Urine (Dipstick) Negative (Negative); Leukocyte Negative (Negative); Nitrite Negative (Negative); Protein, Urine (Dipstick) 100 mg/dL (Neg-Trace); Specific Gravity, Urine 1.025 (1.005-1.030); pH, Urine 5.5 (5.0-9.0)
[2018-12-18 19:09] LABS: Clarity Hazy (Clear)
[2018-12-18 19:16] LABS: RBC/HPF None Seen HPF (0-3); Squamous Epithelial None Seen HPF (0-3); WBC/HPF None Seen HPF (0-3)
[2018-12-18 19:17] LABS: Bacteria/HPF 1+ HPF (None Seen)
[2018-12-18] MEDS ORDERED: Sodium Chloride 0.9% 0 ML ONE (20:22)
[2018-12-18] MEDS ORDERED: Metoclopramide HCl 10 MG/2 ML VIAL ONE (20:22)
[2018-12-18] MEDS ORDERED: diphenhydrAMINE 50 MG/ML VIAL ONE (20:23)
--- NOTE | 2018-12-18 20:58 | RAD ---
KUB AND UPRIGHT AND PA CHEST: History: Abdominal pain, nausea and vomiting. FINDINGS: There is air within both small and large bowel with what appear to be some slightly dilated fluid linh led small bowel loops raising the possibility of partial small bowel obstruction. No free air. Arthri tic changes of the spine are noted. Surgical clips are seen adjacent to the left ischial tuberosity. PA chest: Heart size is borderline. Post op sternotomy change and internal defibrillator. Lungs are c lear of any infiltrative process. IMPRESSION: Suggestion of some slightly distended fluid filled proximal small bowel loops raising the possibility of either ileus or partial small bowel obstruction. If clinically indicated, further evaluation with CT would be recommended for assessment. POS: JUAN CARLOS
[2018-12-18] MEDS ORDERED: Pantoprazole 40 MG VIAL ONE (23:31)
[2018-12-18] MEDS ORDERED: Morphine 4 MG/ML VIAL ONE (23:41)
--- NOTE | 2018-12-18 23:50 | CT ---
CT ABDOMEN AND PELVIS WITH IV CONTRAST: Date: 12-18-18 History: Nausea and vomiting. Comparison: 07-30-17 FINDINGS: There is partial visualization of a left ventricular AICD lead. Median sternotomy wires are partially imaged. Small hiatal hernia is present. The lung bases are clear with question of minimal pleural thickening posteriorly at each lung base. Again noted is atrophic right kidney with severe renal cortical thinning. Multiple bilateral renal cy sts are again seen, more numerous on the right which are stable compared to the prior exam. The liver, pancreas, and bilateral adrenal glands demonstrate a normal CT appearance. Calcified granulomata are seen in the spleen. There are dilated loops of proximal small bowel with loops of bowel measuring up to 3.5 cm. There is no abrupt transition point present, but there is tapering to more normal caliber small bowel within t he ileum. There are subcentimeter too small to characterize hyperdense lesion again seen within the right hepat ic lobe. Gallbladder is not well visualized and may be complete contracted or possibly surgically absent. Again noted is occlusion of the abdominal aorta which begins at the level of the left renal artery. T he right renal artery is very small and atretic in appearance. This is a stable finding. There is partial visualization of fat containing inguinal canals. The lower most portion of the pelvi s is incompletely imaged. No other interval change from prior exam. IMPRESSION: 1. Dilated small bowel loops without abrupt transition zone. Findings may be related to low grade sma ll bowel obstruction or ileus. 2. Small hiatal hernia. 3. Right renal atrophy and cortical thinning. 4. Bilateral renal cysts. 5. Occlusion of the abdominal aorta beginning at the level of the renal arteries. 6. Subcentimeter too small to characterize hypodense lesion right kidney. 7. The gallbladder is not imaged. There is linear density in the region of the gallbladder fossa. Thi s may be related to completely contracted gallbladder, orpossibly related to prior surgery. Clinical correlation recommended. POS: JUAN CARLOS
[2018-12-19] MEDS ORDERED: Ondansetron ODT 4 MG TAB SL PRN (01:28)
[2018-12-19] MEDS ORDERED: Ondansetron PF 4 MG/2 ML Vial IVP PRN (01:28)
[2018-12-19 01:33] VITALS: BMI 26.4
[2018-12-19] MEDS: Sodium Chloride 0.9% 1,000 ML IV SCH ×2 (05:57→08:00)
--- NOTE | 2018-12-19 09:45 | RAD ---
RADIOGRAPH ABDOMEN ONE VIEW: Date: 12-19-18 History: 78-year-old male with right flank pain for three weeks. FINDINGS: There is enteric contrast material throughout the colon from CT of 12-18-18, which partially obscures portions of the bilateral renal shadows and distal ureters. There is IV contrast material within a no ndistended urinary bladder. There is a paucity of gas in the small intestine. The fact that the enter ic contrast material has reached the rectum indicates that there is no high grade small bowel obstruc tion. IMPRESSION: No high grade small bowel obstruction. POS: JUAN CARLOS
--- NOTE | 2018-12-19 10:30 | HP ---
CHIEF COMPLAINT: Lower abdominal pain. HISTORY OF PRESENT ILLNESS: The patient is an 78-year-old male, who reports he has multiple medical problems. He has a 1-week history of feeling weak and a 2 to 3-week history of lower abdominal pain. His bowels have been working. His last bowel movement was 2 days ago. He is currently passing flatus. He developed nausea and vomiting yesterday and came to the emergency room. He feels much better now. He is hungry. No fever. PAST MEDICAL HISTORY: Coronary artery disease. He has had a myocardial infarction, hyperlipidemia, hypertension, COPD, peripheral vascular disease, and benign prostatic hypertrophy. He sees Dr. Agudelo. PAST SURGERIES: He has had 2 coronary artery bypass grafts. He has had bilateral inguinal hernia repair. He has had an implantable defibrillator and he had a cholecystostomy tube for acute cholecystitis in 2017 because he was too sick to go the OR. SOCIAL HISTORY: He is a former smoker. No current tobacco or alcohol. MEDICATIONS: Include; 1. Brilinta. 2. CoQ10. 3. Rosuvastatin. 4. Nitrostat. 5. Dulera. 6. Iron. 7. Aspirin. 8. Albuterol. 9. Imdur ER. 10. Loman. 11. Folic acid. 12. Protonix. 13. Toprol-XL. 14. Finasteride. 15. Coreg. 16. Flomax. 17. Crestor. PHYSICAL EXAMINATION: VITAL SIGNS: Temperature 98.3, pulse 88, and blood pressure 115/74. GENERAL: He is awake and alert, in no distress. HEENT: Unremarkable. LUNGS: Clear. HEART: Regular rate and rhythm. ABDOMEN: Soft, nondistended, and nontender. Good bowel sounds. EXTREMITIES: Unremarkable. LABORATORY DATA: White count 7.5, H and H of 14 and 44, and platelet count 152. Electrolytes are fine. Urinalysis fine. He had a CT scan of the abdomen, which showed a contracted gallbladder. It showed some dilated loops of proximal small bowel, but no transition point and occlusion of the aorta at the renal arteries. ASSESSMENT: Ileus versus partial obstruction, resolved. PLAN: We will repeat his KUB. If it looks like the contrast from the CT has gone through, we will advance diet and discharge. Job ID: [id number]
[2018-12-19] MEDS ORDERED: Nitroglycerin 0.4 MG TAB (25 Tab Bottle) SL PRN (13:23)
[2018-12-19] MEDS ORDERED: Albuterol Sulfate 1.25 MG/3 ML NEB NEB PRN (13:25)
[2018-12-19] MEDS: HYDROcodone/Acetaminophen 7.5/325 mg Tablet PO PRN ×2 (13:40→23:31)
[2018-12-19] MEDS: Mometasone/Formoterol 120 PUFF INHALER INH SCH (19:06)
[2018-12-19] MEDS: Ubidecarenone 50 MG CAP PO SCH (20:33)
[2018-12-19] MEDS: Tamsulosin HCl 0.4 MG CAP PO SCH (20:34)
[2018-12-19] MEDS: Carvedilol 25 MG TAB PO SCH (20:34)
[2018-12-19] MEDS ORDERED: Rosuvastatin 10 MG TAB PO SCH (21:00)
[2018-12-19] MEDS ORDERED: Finasteride 5 MG TAB PO SCH (21:00)
[2018-12-20 07:48] VITALS: BP 123/72; TEMP 97.2
[2018-12-20] MEDS: Mometasone/Formoterol 120 PUFF INHALER INH SCH (08:45)
[2018-12-20] MEDS ORDERED: Aspirin 81 mg Enteric Coated Tablet PO SCH (09:00)
[2018-12-20] MEDS ORDERED: Folic Acid 1 MG TAB PO SCH (09:00)
[2018-12-20] MEDS ORDERED: Ferrous Sulfate 325 MG TAB PO SCH (09:00)
[2018-12-20] MEDS ORDERED: TICAGRELOR 60 MG PO SCH (09:00)
[2018-12-20] MEDS: Tamsulosin HCl 0.4 MG CAP PO SCH (09:06)
[2018-12-20] MEDS: Ubidecarenone 50 MG CAP PO SCH (09:06)
[2018-12-20] MEDS: Carvedilol 25 MG TAB PO SCH (09:07)
--- NOTE | 2018-12-20 12:42 | DIS ---
DATE OF ADMISSION: 12/19/2018 DATE OF DISCHARGE: 12/20/2018 DISCHARGE DIAGNOSIS: Partial small bowel obstruction. PROCEDURES DURING ADMISSION: Bowel rest and IV fluids. HOSPITAL COURSE: The patient was admitted and placed at bowel rest. He got better. Followup KUB showed contrast had moved through. He felt fine. His diet advanced. He is tolerating a regular diet. He is discharged home on his usual medications. He will follow up with me in 2 weeks. Job ID: [id number]
== END 2018-12-20 10:00 | disposition home or self-care (01) ==
LOC: SCSER 17:55 → SURG A 12-19 00:48
PROVIDERS: ADMIT Surgery; ATTEND Surgery
DX: K56.600 Partial intestinal obstruction, unspecified as to cause (principal); I25.10 Atherosclerotic heart disease of native coronary artery without angina pectoris; I25.2 Old myocardial infarction; E78.5 Hyperlipidemia, unspecified; I10 Essential (primary) hypertension; N40.0 Benign prostatic hyperplasia without lower urinary tract symptoms; I73.9 Peripheral vascular disease, unspecified; K44.9 Diaphragmatic hernia without obstruction or gangrene; Z87.891 Personal history of nicotine dependence; Z79.02 Long term (current) use of antithrombotics/antiplatelets; Z79.82 Long term (current) use of aspirin; Z79.899 Other long term (current) drug therapy; Z88.8 Allergy status to other drugs, medicaments and biological substances; Z95.1 Presence of aortocoronary bypass graft; Z95.810 Presence of automatic (implantable) cardiac defibrillator
CPT/HCPCS: 74018; 74022; 74177; 80053; 83605; 83690; 84484; 85025; 93005; 94640 ×2; 96361 ×2; 96365; 96375; 99285; G0378 ×2; 81003; 81015; C9113; J1200; J2270; J2405; J2765; J7050

== ENCOUNTER 2024-03-29 18:45 | Inpatient (IN) | payer MEDICARE ==
[2024-03-29 19:09] LABS: #Basophils Less than 0.03 10x3/uL (0.0-0.2); %Basophils 0.3 % (0.0-1.0); %Eosinophils 5.2 % (0.0-10.0); %Lymphocytes 15.2 % (21.0-51.0); %Monocytes 10.6 % (0.0-10.0); %Neutrophils 68.3 % (42.0-75.0); Hemoglobin 10.1 g/dL (14.0-18.0); Mean Corpuscular HGB CONC 33.7 g/dL (32.0-36.0); Mean Corpuscular Hemoglobin 26.1 pg (27.0-31.0); Mean Corpuscular Volume 77.5 fL (78.0-98.0); Mean Platelet Volume 9.9 fL (7.4-10.4); Platelet Count 166 10x3/uL (130-400); RBC Distribution Width 21.2 % (11.5-14.5); Red Blood Cell (RBC) Count 3.87 mill/uL (4.70-6.10)
[2024-03-29 19:30] LABS: ALT (SGPT) Less than 5 U/L (8-55); AST (SGOT) 13 U/L (5-34); Albumin 3.3 g/dL (3.4-4.8); Alkaline Phosphatase 48 U/L (40-110); Anion Gap 13 mmol/L (10-20); BUN (Urea Nitrogen) 50 mg/dL (8.4-25.7); Bilirubin, Total 0.6 mg/dL (0.2-1.2); Calc. Creatinine Clearance 0 mL/min (70-130); Carbon Dioxide 26 mmol/L (23-31); Chloride 99 mmol/L (98-107); Estimated GFR 51; Globulin 2.8 g/dL (2.4-3.5); Glucose 129 mg/dL (83-110); Potassium 3.6 mmol/L (3.5-5.1); Protein, Total 6.1 g/dL (5.8-8.1); Sodium 134 mmol/L (136-145)
[2024-03-29 19:33] LABS: Troponin I 0.012 ng/mL (< 0.028)
[2024-03-29 19:51] LABS: Bacteria/HPF None Seen HPF (None Seen); Bilirubin Negative (Negative); Blood, Urine Negative (Negative); CAUTI Indications for Culture Pelvic or flank pain; Clarity Clear (Clear); Glucose, Urine (Dipstick) Normal (Negative); Ketone, Urine Negative (Negative); Leukocyte Negative Leu/uL (Negative); Nitrite Negative (Negative); Protein, Urine (Dipstick) Negative (Neg-Trace); RBC/HPF None Seen HPF (0-3); Specific Gravity, Urine 1.015 (1.002-1.036); Squamous Epithelial 0-3 HPF (0-3); WBC/HPF 0-3 HPF (0-3); pH, Urine 6.5 (5.0-9.0)
[2024-03-29 19:54] LABS: Urine Culture Reflex No No
[2024-03-29] MEDS ORDERED: CALCIUM GLUC 1 GM/NS 50 ML IV Bag ONE (22:42)
[2024-03-29] MEDS ORDERED: Ipratropium/Albuterol 3 ML NEB ONE (23:37)
[2024-03-29] MEDS ORDERED: Ondansetron PF 4 MG/2 ML Vial IVP PRN (23:37)
[2024-03-30 00:06] LABS: Magnesium 1.7 mg/dL (1.6-2.6)
[2024-03-30 00:39] LABS: Actual Bicarbonate (HCO3v) 23.5 mEq/L (22-28); Base Excess -1.7 mEq/L (-2.0 to +3.0); Calcium, Ionized (venous) 1.16 mmol/L (1.16-1.32); Chloride (VBG) 99 mmol/L (98-106); Hematocrit-VBG 33 % (42.0-52.0); Hemoglobin (Hb) 11.2 g/dL (12.6-17.4); Potassium (VBG) 4.03 mmol/L (3.70-5.30); Sodium 136 mmol/L (133-146); pH (venous) 7.369 (7.32-7.43)
[2024-03-30 01:52] VITALS: BMI 23.1
[2024-03-30] MEDS: Ipratropium/Albuterol 3 ML NEB IPPB SCH (02:11)
[2024-03-30 04:04] LABS: Amphetamine Not Detected (NotDetected); Barbiturates Screen Not Detected (NotDetected); Benzodiazepine Screen Not Detected (NotDetected); Cocaine Metabolite Screen Not Detected (NotDetected); Methadone Not Detected (NotDetected); Methamphetamine Not Detected (NotDetected); Opiate Screen Not Detected (NotDetected); Oxycodone Screen Not Detected (NotDetected); Phencyclidine (PCP) Not Detected (NotDetected); THC/Cannabinoid Screen Not Detected (NotDetected); Tricyclic Screen Detected (NotDetected)
[2024-03-30] MEDS: Magnesium 2 GM/50 ML(in water) 2 GM in Premix 1 BAG IVPB SCH (04:38)
[2024-03-30 06:10] LABS: #Basophils 0.03 10x3/uL (0.0-0.2); %Basophils 0.4 % (0.0-1.0); %Eosinophils 5.7 % (0.0-10.0); %Lymphocytes 17.3 % (21.0-51.0); %Monocytes 12.5 % (0.0-10.0); %Neutrophils 63.7 % (42.0-75.0); Hematocrit 31.6 % (42.0-52.0); Hemoglobin 10.3 g/dL (14.0-18.0); Mean Corpuscular HGB CONC 32.6 g/dL (32.0-36.0); Mean Corpuscular Hemoglobin 25.2 pg (27.0-31.0); Mean Corpuscular Volume 77.5 fL (78.0-98.0); Mean Platelet Volume 10.7 fL (7.4-10.4); Platelet Count 172 10x3/uL (130-400); RBC Distribution Width 21.2 % (11.5-14.5); Red Blood Cell (RBC) Count 4.08 mill/uL (4.70-6.10)
[2024-03-30 06:27] LABS: Anion Gap 12 mmol/L (10-20); BUN (Urea Nitrogen) 41 mg/dL (8.4-25.7); Calc. Creatinine Clearance 52 mL/min (70-130); Calcium 9.2 mg/dL (7.8-10.44); Carbon Dioxide 24 mmol/L (23-31); Chloride 102 mmol/L (98-107); Estimated GFR 63; Glucose 101 mg/dL (83-110); Iron 49 ug/dL (65-175); Iron Binding Capacity, Total 314 mcg/dL (261-462); Potassium 3.6 mmol/L (3.5-5.1); Sodium 134 mmol/L (136-145)
[2024-03-30] MEDS: Mometasone 200 MCG/Formoterol 5 MCG 120 PUFF INHALER INH SCH (06:30)
[2024-03-30] MEDS: Ranolazine ER 500 MG TAB PO SCH (09:35)
[2024-03-30] MEDS: Carbidopa/Levodopa 25-100 mg Tablet PO SCH (09:35)
[2024-03-30] MEDS: Icosapent Ethyl 1 GM CAPSULE PO SCH (09:35)
[2024-03-30] MEDS: Apixaban 5 MG TAB PO SCH (09:35)
[2024-03-30] MEDS: Clopidogrel Bisulfate 75 MG TAB PO SCH (09:35)
[2024-03-30] MEDS: Pantoprazole DR 40 MG TAB PO SCH (09:35)
[2024-03-30] MEDS: Folic Acid 1 MG TAB PO SCH (09:35)
[2024-03-30] MEDS: Diclofenac 1% 50 GM TOPICAL GEL TP PRN (12:08)
[2024-03-30] MEDS: Rosuvastatin 10 MG TAB PO SCH (22:03)
[2024-03-31 04:00] LABS: #Basophils 0.03 10x3/uL (0.0-0.2); %Basophils 0.4 % (0.0-1.0); %Lymphocytes 17.2 % (21.0-51.0); %Monocytes 10.6 % (0.0-10.0); %Neutrophils 66.4 % (42.0-75.0); Hematocrit 33.9 % (42.0-52.0); Hemoglobin 11.2 g/dL (14.0-18.0); Mean Corpuscular Hemoglobin 26.1 pg (27.0-31.0); Mean Platelet Volume 10.5 fL (7.4-10.4); Platelet Count 176 10x3/uL (130-400); RBC Distribution Width 21.7 % (11.5-14.5); Red Blood Cell (RBC) Count 4.29 mill/uL (4.70-6.10)
[2024-03-31 04:18] LABS: Anion Gap 13 mmol/L (10-20); BUN (Urea Nitrogen) 27 mg/dL (8.4-25.7); Calc. Creatinine Clearance 65 mL/min (70-130); Calcium 9.4 mg/dL (7.8-10.44); Carbon Dioxide 23 mmol/L (23-31); Chloride 101 mmol/L (98-107); Estimated GFR 83; Glucose 96 mg/dL (83-110); Potassium 4.2 mmol/L (3.5-5.1); Sodium 133 mmol/L (136-145)
[2024-03-31] MEDS: Ziprasidone 20 MG VIAL ONE (22:27)
[2024-03-31] MEDS: Sterile Water 10 ML ONE (22:28)
[2024-03-31] MEDS: Ziprasidone 20 MG VIAL IM SCH (22:29)
[2024-03-31] MEDS ORDERED: Sterile Water 10 ML VIAL FS PRN (22:30)
[2024-04-01 04:34] LABS: #Basophils Less than 0.03 10x3/uL (0.0-0.2); %Basophils 0.2 % (0.0-1.0); %Lymphocytes 16.4 % (21.0-51.0); %Neutrophils 70.8 % (42.0-75.0); Hematocrit 36.4 % (42.0-52.0); Hemoglobin 12.2 g/dL (14.0-18.0); Mean Corpuscular HGB CONC 33.5 g/dL (32.0-36.0); Mean Corpuscular Volume 77.4 fL (78.0-98.0); Platelet Count 174 10x3/uL (130-400); RBC Distribution Width 21.5 % (11.5-14.5)
[2024-04-01 04:49] LABS: Anion Gap 17 mmol/L (10-20); BUN (Urea Nitrogen) 22 mg/dL (8.4-25.7); Calc. Creatinine Clearance 70 mL/min (70-130); Calcium 9.4 mg/dL (7.8-10.44); Carbon Dioxide 24 mmol/L (23-31); Chloride 98 mmol/L (98-107); Estimated GFR 85; Glucose 92 mg/dL (83-110); Potassium 3.7 mmol/L (3.5-5.1); Sodium 135 mmol/L (136-145)
[2024-04-01] MEDS: Acetaminophen 325 MG TAB PO PRN (07:53)
[2024-04-01] MEDS: risperiDONE 0.25 MG TAB PO SCH (17:56)
[2024-04-01] MEDS: Melatonin 3 MG TAB PO PRN (21:59)
[2024-04-02] MEDS ORDERED: Magnesium Sulfate 20 GM/WATER 500 ML BAG IVPB SCH (00:45)
[2024-04-02 00:52] LABS: #Basophils Less than 0.03 10x3/uL (0.0-0.2); %Basophils 0.1 % (0.0-1.0); %Eosinophils 2.9 % (0.0-10.0); %Lymphocytes 17.7 % (21.0-51.0); %Monocytes 10.7 % (0.0-10.0); %Neutrophils 68.1 % (42.0-75.0); Hematocrit 35.9 % (42.0-52.0); Hemoglobin 12.2 g/dL (14.0-18.0); Mean Corpuscular Hemoglobin 26.6 pg (27.0-31.0); Mean Corpuscular Volume 78.2 fL (78.0-98.0); Mean Platelet Volume 9.4 fL (7.4-10.4); Platelet Count 168 10x3/uL (130-400); RBC Distribution Width 21.2 % (11.5-14.5); Red Blood Cell (RBC) Count 4.59 mill/uL (4.70-6.10)
[2024-04-02] MEDS: Magnesium Sulfate In Water 4 GM in Premix 1 BAG IVPB SCH (00:52)
[2024-04-02] MEDS: Magnesium 5 GM/10 ML VIAL IV SCH (00:52)
[2024-04-02 01:15] LABS: ALT (SGPT) Less than 5 U/L (8-55); AST (SGOT) 15 U/L (5-34); Albumin 3.5 g/dL (3.4-4.8); Alkaline Phosphatase 58 U/L (40-110); Anion Gap 16 mmol/L (10-20); BUN (Urea Nitrogen) 25 mg/dL (8.4-25.7); Bilirubin, Total 1.2 mg/dL (0.2-1.2); Calc. Creatinine Clearance 66 mL/min (70-130); Calcium 9.5 mg/dL (7.8-10.44); Carbon Dioxide 23 mmol/L (23-31); Chloride 98 mmol/L (98-107); Estimated GFR 84; Glucose 108 mg/dL (83-110); Magnesium 1.4 mg/dL (1.6-2.6); Potassium 4.3 mmol/L (3.5-5.1); Protein, Total 6.5 g/dL (5.8-8.1); Sodium 133 mmol/L (136-145)
[2024-04-02 01:17] LABS: Troponin I 0.015 ng/mL (< 0.028)
[2024-04-02] MEDS: Amiodarone 150 MG in Dextrose 5% in Water 100 ML IVPB SCH (02:05)
[2024-04-02] MEDS: Ipratropium/Albuterol 3 ML NEB NEB PRN (04:21)
[2024-04-02 04:30] LABS: #Basophils Less than 0.03 10x3/uL (0.0-0.2); %Basophils 0.2 % (0.0-1.0); %Eosinophils 3.3 % (0.0-10.0); %Lymphocytes 15.1 % (21.0-51.0); %Monocytes 9.9 % (0.0-10.0); %Neutrophils 70.9 % (42.0-75.0); Hematocrit 37.3 % (42.0-52.0); Hemoglobin 12.2 g/dL (14.0-18.0); Mean Corpuscular HGB CONC 32.7 g/dL (32.0-36.0); Mean Corpuscular Hemoglobin 25.7 pg (27.0-31.0); Mean Corpuscular Volume 78.5 fL (78.0-98.0); Mean Platelet Volume 9.9 fL (7.4-10.4); Platelet Count 186 10x3/uL (130-400); RBC Distribution Width 21.2 % (11.5-14.5); Red Blood Cell (RBC) Count 4.75 mill/uL (4.70-6.10)
[2024-04-02 04:53] LABS: Anion Gap 14 mmol/L (10-20); BUN (Urea Nitrogen) 25 mg/dL (8.4-25.7); Calc. Creatinine Clearance 69 mL/min (70-130); Calcium 9.5 mg/dL (7.8-10.44); Carbon Dioxide 25 mmol/L (23-31); Chloride 96 mmol/L (98-107); Estimated GFR 85; Glucose 102 mg/dL (83-110); Potassium 4.2 mmol/L (3.5-5.1); Sodium 131 mmol/L (136-145)
[2024-04-02] MEDS: Sodium Chloride 0.9% 1,000 ML IV SCH (10:19)
[2024-04-02] MEDS: Carvedilol 6.25 MG TAB PO SCH (10:21)
[2024-04-02] MEDS: Tamsulosin HCl 0.4 MG CAP PO SCH (10:21)
[2024-04-02 15:15] LABS: Anion Gap 16 mmol/L (10-20); BUN (Urea Nitrogen) 24 mg/dL (8.4-25.7); Calc. Creatinine Clearance 69 mL/min (70-130); Calcium 9.3 mg/dL (7.8-10.44); Carbon Dioxide 23 mmol/L (23-31); Chloride 96 mmol/L (98-107); Estimated GFR 85; Glucose 103 mg/dL (83-110); Potassium 4.2 mmol/L (3.5-5.1); Sodium 131 mmol/L (136-145)
[2024-04-02] MEDS: Gabapentin 300 MG CAP PO SCH (21:27)
[2024-04-02] MEDS: Finasteride 5 MG TAB PO SCH (21:28)
[2024-04-03 04:33] LABS: #Basophils Less than 0.03 10x3/uL (0.0-0.2); %Basophils 0.3 % (0.0-1.0); %Eosinophils 5.2 % (0.0-10.0); %Lymphocytes 16.3 % (21.0-51.0); %Monocytes 9.9 % (0.0-10.0); %Neutrophils 67.8 % (42.0-75.0); Hematocrit 30.5 % (42.0-52.0); Hemoglobin 10.3 g/dL (14.0-18.0); Mean Corpuscular HGB CONC 33.8 g/dL (32.0-36.0); Mean Corpuscular Hemoglobin 26.5 pg (27.0-31.0); Mean Corpuscular Volume 78.6 fL (78.0-98.0); Mean Platelet Volume 10.5 fL (7.4-10.4); Platelet Count 172 10x3/uL (130-400); Red Blood Cell (RBC) Count 3.88 mill/uL (4.70-6.10)
[2024-04-03 04:51] LABS: Anion Gap 11 mmol/L (10-20); BUN (Urea Nitrogen) 21 mg/dL (8.4-25.7); Calc. Creatinine Clearance 78 mL/min (70-130); Calcium 7.6 mg/dL (7.8-10.44); Carbon Dioxide 21 mmol/L (23-31); Chloride 103 mmol/L (98-107); Estimated GFR 89; Glucose 84 mg/dL (83-110); Magnesium 1.5 mg/dL (1.6-2.6); Potassium 3.1 mmol/L (3.5-5.1); Sodium 132 mmol/L (136-145)
[2024-04-03] MEDS: Potassium Chloride 20 MEQ TAB PO SCH (08:32)
[2024-04-03] MEDS: Magnesium 2 GM/50 ML(in water) 2 GM in Premix 1 BAG IVPB SCH (08:35)
[2024-04-03] MEDS: Lorazepam 2 MG/ML VIAL SLOW IVP SCH (08:37)
[2024-04-03] MEDS: Icosapent Ethyl 1 GM CAPSULE PO SCH (21:48)
[2024-04-04 05:08] LABS: Anion Gap 13 mmol/L (10-20); BUN (Urea Nitrogen) 19 mg/dL (8.4-25.7); Calc. Creatinine Clearance 80 mL/min (70-130); Calcium 8.5 mg/dL (7.8-10.44); Carbon Dioxide 18 mmol/L (23-31); Chloride 102 mmol/L (98-107); Estimated GFR 89; Glucose 86 mg/dL (83-110); Magnesium 1.8 mg/dL (1.6-2.6); Potassium 4.4 mmol/L (3.5-5.1); Sodium 129 mmol/L (136-145)
[2024-04-04] MEDS: Sodium Bicarbonate Tab 325 MG TAB PO SCH (10:09)
[2024-04-04 12:53] VITALS: BMI 23.1
[2024-04-04 16:54] LABS: Anion Gap 15 mmol/L (10-20); BUN (Urea Nitrogen) 19 mg/dL (8.4-25.7); Calc. Creatinine Clearance 78 mL/min (70-130); Calcium 8.8 mg/dL (7.8-10.44); Carbon Dioxide 18 mmol/L (23-31); Chloride 102 mmol/L (98-107); Estimated GFR 88; Glucose 89 mg/dL (83-110); Potassium 4.3 mmol/L (3.5-5.1); Sodium 131 mmol/L (136-145)
[2024-04-05 05:06] LABS: Anion Gap 13 mmol/L (10-20); BUN (Urea Nitrogen) 16 mg/dL (8.4-25.7); Calc. Creatinine Clearance 78 mL/min (70-130); Calcium 8.5 mg/dL (7.8-10.44); Carbon Dioxide 21 mmol/L (23-31); Chloride 103 mmol/L (98-107); Estimated GFR 88; Glucose 87 mg/dL (83-110); Potassium 3.8 mmol/L (3.5-5.1); Sodium 133 mmol/L (136-145)
[2024-04-05 12:04] VITALS: BP 160/71; TEMP 97.1
== END 2024-04-05 16:10 | DRG 314 ==
LOC: ERS 18:45 → 2NO 23:39
PROVIDERS: ADMIT Internal Medicine; ATTEND Internal Medicine
DX: I95.9 Hypotension, unspecified (principal); G92.8 Other toxic encephalopathy; I50.22 Chronic systolic (congestive) heart failure; N17.9 Acute kidney failure, unspecified; E87.1 Hypo-osmolality and hyponatremia; F02.A11 Dementia in other diseases classified elsewhere, mild, with agitation; D50.9 Iron deficiency anemia, unspecified; Z66 Do not resuscitate; I45.10 Unspecified right bundle-branch block; G20.A1 Parkinson's disease without dyskinesia, without mention of fluctuations; I48.0 Paroxysmal atrial fibrillation; I25.10 Atherosclerotic heart disease of native coronary artery without angina pectoris; I11.0 Hypertensive heart disease with heart failure; G47.33 Obstructive sleep apnea (adult) (pediatric); J44.9 Chronic obstructive pulmonary disease, unspecified; I73.9 Peripheral vascular disease, unspecified; K21.9 Gastro-esophageal reflux disease without esophagitis; N40.0 Benign prostatic hyperplasia without lower urinary tract symptoms; M54.9 Dorsalgia, unspecified; G89.29 Other chronic pain; Z79.899 Other long term (current) drug therapy; Z88.8 Allergy status to other drugs, medicaments and biological substances; Z90.5 Acquired absence of kidney; Z95.1 Presence of aortocoronary bypass graft; Z95.810 Presence of automatic (implantable) cardiac defibrillator; Z87.891 Personal history of nicotine dependence
CPT/HCPCS: 36415; 36416; 51701; 70450; 71045; 80048; 80053; 80306; 81001; 82533; 82728; 82805; 83540; 83550; 83605; 83735; 83880; 84443; 84484; 85025; 87040; 87086; 93005; 93010; 94640; 96374; J0282; J0613; J3475; J3486; J7050; J7070; J7620